=== PATIENT | male | born 1970 | race Caucasian/White ===

== ENCOUNTER 2020-11-08 15:32 | Emergency (ER) | payer OTHER, SELFPAY ==
--- NOTE | ~2020-11-08 | CT_ITS ---
EXAMINATION: CT abdomen pelvis w con DATE: 11/08/2020 18:22 INDICATION: Vomiting. Abnormal liver function tests. TECHNIQUE: Computed tomography (CT) of the abdomen and pelvis was performed with 100 mL Omnipaque-350 intravenous contrast. Automated exposure control and iterative reconstruction technique were employe d. The dose-length product was 727.57 mGy-cm. COMPARISON: None FINDINGS: Small linear bands is minimal atelectasis in the lingula and right lower lobe. Focal tree-in-bud maikel ajcky and a few centrilobular opacities in the posterior basilar segment of the left lower lobe consist ent with endobronchial spread of disease which could be related to infection or aspiration. Heart siz e is normal. No pericardial or pleural effusion. Liver, gallbladder pancreas, bilateral adrenal gland s and right kidney are normal. No intra or extra hepatic biliary ductal dilation. 5 mm low-attenuatio n likely left renal cyst. 9 mm intermediate attenuation lesion at the posterior lower pole of the lef t kidney equivocal for the more common proteinaceous/hemorrhagic cyst or less likely solid enhancing neoplasm. Mild splenomegaly measuring 13.4 cm in maximal length. Small fat-containing umbilical herni a. Normal appendix. No abnormal bowel wall thickening or obstruction. Bladder is normal. No free intr aperitoneal gas or fluid. Shotty bilateral inguinal lymph nodes, the largest measuring up to 1.5 rita lar on both the left and right. No pathologically enlarged more cephalad abdominal or pelvic lymphade nopathy. Mild lower lumbar levocurvature with moderate lumbosacral spondylosis and mild spondylosis i n the more cephalad lumbar and lower thoracic spine. IMPRESSION: 1. Mild tree-in-bud pattern in a few small centrilobular nodules in the left lower lobe most consiste nt with endobronchial spread of disease either aspiration or bronchiolitis/early pneumonia. 2. Indeterminate 9 mm intermediate attenuation left renal lesion which could represent a proteinaceou s/hemorrhagic cyst or solid enhancing neoplasm such as renal cell carcinoma. Would recommend further evaluation with follow-up pre and postcontrast MRI or CT. 3. Nonspecific mild splenomegaly which could be related to body habitus. 4. Mild bilateral inguinal lymphadenopathy which is most likely reactive. Recommend clinical follow-u p with further evaluation with ultrasound or ultrasound-guided biopsy should there be clinical concer n for further enlargement. 4. Small fat-containing umbilical hernia. Reviewed, dictated and finalized at location A. MAINTAINER IMPRESSION: 1. Mild tree-in-bud pattern in a few small centrilobular nodules in the left lo wer lobe most consistent with endobronchial spread of disease either aspiration or bronchiolitis/early pneumonia. 2. Indeterminate 9 mm intermediate attenuation left renal lesion which could re present a proteinaceous/hemorrhagic cyst or solid enhancing neoplasm such as re nal cell carcinoma. Would recommend further evaluation with follow-up pre and p ostcontrast MRI or CT. 3. Nonspecific mild splenomegaly which could be related to body habitus. 4. Mild bilateral inguinal lymphadenopathy which is most likely reactive. Recom mend clinical follow-up with further evaluation with ultrasound or ultrasound-g uided biopsy should there be clinical concern for further enlargement. 4. Small fat-containing umbilical hernia.
[2020-11-08 16:18] VITALS: BP 120/90; PULSE 92; RESP 16; TEMP 36.4; O2SAT 97
[2020-11-08 16:39] LABS: Basophils Percent Auto 0.4 % (0.2-1.2); Eosinophils Percent Auto 0.2 % (0-4.4); Hematocrit 46.3 % (42.0-52.0); Hemoglobin 15.4 g/dL (14.0-18.0); Immature Granulocyte Absolute 0.04 K/mm3 (0.00-0.031); Immature Granulocyte Percent A 0.8 % (0-0.5); Lymphocytes Absolute Auto 1.39 K/mm3 (0.9-3.2); Lymphocytes Percent Auto 28.5 % (18.3-44.2); Mean Corpuscular HGB Conc 33.3 g/dl (32-36); Mean Corpuscular Hemoglobin 28.1 pg (26-34); Mean Corpuscular Volume 84.5 fl (80-100); Mean Platelet Volume 10.1 fl (7.4-10.4); Monocytes Absolute Auto 0.5 K/mm3 (0.1-0.6); Monocytes Percent Auto 10.5 % (2.6-8.5); Neutrophils Absolute Auto 2.9 K/mm3 (1.3-6.7); Neutrophils Percent Auto 59.6 % (45.5-73.1); Platelet Count Result 237 k/mm3 (150-375); Red Blood Count 5.48 M/mm3 (4.6-6.20); White Blood Count 4.9 K/mm3 (4.5-10.0)
[2020-11-08 16:49] LABS: Add Urine Microscopic? YES; Appearance Urine Clear (Clear); Bacteria Urine Trace /hpf; Bilirubin Urine Negative (Negative); Blood Urine Negative (Negative); Color Urine Amber (Yellow); Glucose Urine UA Negative (Negative); Ketones Urine Trace mg/dL (Negative); Leukocyte Esterase Ur Negative LEU/UL (Negative); Mucus Urine Heavy /lpf; Nitrate Urine Negative (Negative); Protein Urine 2+ mg/dL (Negative); RBC Urine 0-2 /hpf (0-2); Squamous Epithelial Cell Urine Rare /hpf (Few)
[2020-11-08 16:52] LABS: Atypical Lymphocytes Present; Platelet Estimate Adequate (Adequate)
[2020-11-08 16:56] LABS: Specific Grav Ur 1.031 (1.001-1.035)
[2020-11-08 17:22] LABS: Alanine Aminotransferase 732 U/L (4-50); Albumin Level 4.3 g/dL (3.5-5.1); Alkaline Phosphatase 112 U/L (38-126); Anion Gap 10 mmol/L (8-16); Aspartate Amino Transferase 287 U/L (17-59); Bilirubin,Total 1.2 mg/dL (0.2-1.3); Blood Urea Nitrogen 15 mg/dL (9-20); Calcium 9.4 mg/dL (8.4-10.2); Carbon Dioxide 23 mmol/L (22-30); Chloride 104 mmol/L (98-107); Estimated CRCL calculation 111 ml/min; Estimated Glomerular Filt Rate > 60; Glucose 105 mg/dL (75-110); Lipase 156 U/L (23-300); Sodium 137 mmol/L (137-145)
--- NOTE | 2020-11-08 17:32 | PC.NURSE ---
Called lab to add on hepatitis panel
--- NOTE | 2020-11-08 17:52 | ED.GENADULT ---
HPI - General Adult General Chief complaint: Nausea/Vomiting/Diarrhea Stated complaint: dehydrated, diarrhea, chills Time Seen by Provider: 11/08/20 17:18 Source: patient History of Present Illness HPI narrative: Patient is a 50 y/o male complaining of diarrhea for 3 weeks. He states that his diarrhea is watery and he had more than 10 episodes during last 24 hours. He also has nausea and vomiting. He states that he has not been eating much because food tastes like salt. He denies any fever, cough or abdominal pain. He states that he was tested for COVID 2 weeks ago and it was negative. He was also given a course of antibiotics by PCP recently. Related Data Home Medications Medication Instructions Recorded Confirmed azithromycin 11/08/20 methylprednisolone mg 11/08/20 11/08/20 Allergies Allergy/AdvReac Type Severity Reaction Status Date / Time PCN Allergy Mild Uncoded 11/14/07 21:51 Review of Systems Constitutional: Constitutional: Denies chills, Denies fever(s), Denies headache(s) and Denies weakness Eyes: Eyes: Denies blurry vision ENT: Denies headache(s) and Denies neck pain Cardiovascular: Cardiovascular: Denies chest pain and Denies dyspnea Respiratory: Respiratory: Denies cough and Denies dyspnea Gastrointestinal: Gastrointestinal: Denies abdominal pain, Reports diarrhea, Reports nausea and Reports vomiting Genitourinary: Genitourinary: Denies hematuria and Denies dysuria Musculoskeletal: Musculoskeletal: Denies back pain, Denies neck pain and Reports other (leg pain) Neurologic: Denies headache(s) and Denies weakness Exam Const: General: no acute distress and well developed Orientation/consciousness: oriented to person, oriented to place, oriented to time and patient oriented x3 HENMT: Head: normocephalic Ears: external ears normal General nose exam: Normal external nose present Eyes: General: appearance normal, both eyes and all related structures Conjunctivae: conjunctivae normal Neck: Neck: normal visual inspection and full ROM Chest: Chest palpation & inspection: normal inspection of the chest and no tenderness Resp: Effort & Inspection: normal respiratory effort Auscultation: clear to auscultation bilaterally Cardio: Rate: regular rate Rhythm: regular rhythm GI: GI Palp: No abdominal tenderness and Yes Soft to palpation Skin: General skin exam: normal color and turgor normal Neuro: General: oriented to person, oriented to place, oriented to time and patient oriented x3 Cognition (Neuro): normal cognition Extrem: General: normal to inspection, full ROM and no pedal edema Psych: Appearance: grossly normal Mental Status: mental status grossly normal Affect: normal affect Course Reevaluation(s) Reevaluation #1: Discussed with patient about possible admission for observation. Offered patient admission. However, patient declined and wanted to be discharged instead. Informed patient about CT finding of kidney lesion and the need for follow up. Date: 11/08/20 Time: 19:55 Consultations Consultation #1: Discussed with Dr. Padilla, who states that patient can follow up with him in office or if patient is admitted he will see patient for consult. Date: 11/08/20 Time: 19:50 Vital Signs Vital signs: Vital Signs Temperature 36.4 C 11/08/20 16:18 Pulse Rate 92 11/08/20 16:18 Respiratory Rate 16 11/08/20 16:18 Blood Pressure 120/90 11/08/20 16:18 Pulse Oximetry 97 11/08/20 16:18 Temperature 36.4 C 11/08/20 16:18 Pulse Rate 84 11/08/20 20:42 Respiratory Rate 15 11/08/20 20:42 Blood Pressure 142/86 H 11/08/20 20:42 Pulse Oximetry 94 11/08/20 20:42 Medical Decision Making Vital Signs Vital Signs: Vital Signs Temperature 36.4 C 11/08/20 16:18 Pulse Rate 92 11/08/20 16:18 Respiratory Rate 16 11/08/20 16:18 Blood Pressure 120/90 11/08/20 16:18 Pulse Oximetry 97 11/08/20 16:18 Temperature 36.4 C 11/08/20 16:18 Pulse Rate
[2020-11-08] MEDS: SODIUM CHLORIDE 0.9% IV 1,000 ML 999 ML IV CONT (17:56)
[2020-11-08 18:13] LABS: Hepatitis B Surface Antigen Negative (Negative)
[2020-11-08 18:19] LABS: HAV RESULT Negative (Negative); Hepatitis B Core IgM Result Negative (Negative)
[2020-11-08 18:30] LABS: Hepatitis C Virus Antibody Negative (Negative)
[2020-11-08 20:42] VITALS: BP 142/86; PULSE 84; RESP 15; O2SAT 94
[2020-11-10 18:18] LABS: SARS-CoV-2 RNA PCR Negative
== END 2020-11-08 20:30 | disposition home or self-care (01) ==
PROVIDERS: Emergency Medicine; Emergency Provider Emergency Medicine; PCP Family Medicine Sports Medicine
DX: R19.7 Diarrhea, unspecified (principal); R74.01 Elevation of levels of liver transaminase levels; N28.9 Disorder of kidney and ureter, unspecified; E86.0 Dehydration; Z20.822 Contact with and (suspected) exposure to COVID-19
CPT/HCPCS: 36415; 74177; 80053; 80074; 81001; 83690; 85025; 99284; C9803; J7030; Q9967; U0003; U0005